=== PATIENT | male | born 1990 | race Caucasian/White ===

== ENCOUNTER 2019-08-03 18:33 | Emergency (ER) | payer OTHER ==
[~2019-08-03] VITALS: Ht 188 cm; Wt 83.9 kg
[2019-08-03 21:21] VITALS: BP 118/63
[2019-08-03] MEDS ORDERED: BUTALB-APAP-CA1 EACH PO (21:32)
== END 2019-08-03 21:54 | disposition home or self-care (01) ==
LOC: ER 18:33
DX: R51 Headache (principal); F12.90 Cannabis use, unspecified, uncomplicated